=== PATIENT | male | born 1960 | race Caucasian/White ===

== ENCOUNTER 2016-11-11 14:02 | Emergency (ER) | payer OTHER ==
[~2016-11-11] VITALS: Ht 182.9 cm; Wt 92.5 kg
--- NOTE | 2016-11-11 14:20 | NUR ---
PATIENT PRESENTS TO ER C/O CHEST PAIN, 2/10 AT THE MOMENT. STATING 9/10 PAIN 2 DAYS AGO. CURRENTLY BREATHING EVEN AND UNLABORED. NO SOB, NO DIAPHORESIS. DENIES RADIATING PAIN. VITALS STABLE. SAFETY AND COMFORT MEASURES IN PLACE. AWAITING MD ORDERS.
--- NOTE | 2016-11-11 14:25 | NUR ---
NEW IV STARTED ON RAC, 18 G. BLOOD DRAWN AND SENT TO LAB.
[2016-11-11] MEDS ORDERED: ASPIRIN 325 MG TABLET PO ONE (14:30)
[2016-11-11] MEDS ORDERED: ASPIRIN 325 MG TABLET ONE (14:32)
[2016-11-11 14:45] LABS: BASOPHILS # (AUTO) 0.1 /CMM (0.0-0.2); BASOPHILS % (AUTO) 0.8 % (0.0-2.0); EOSINOPHILS # (AUTO) 0.2 /CMM (0.0-0.7); EOSINOPHILS % (AUTO) 1.9 % (0.0-6.0); HEMATOCRIT 48 % (39-51); HEMOGLOBIN 16.8 g/dL (13.5-17.5); LYMPHOCYTES # (AUTO) 2.6 /CMM (0.8-4.8); MEAN CORPUSCULAR HEMOGLOBIN 30 PG (26.0-33.0); MEAN CORPUSCULAR HGB CONC 35 g/dl (31.0-36.0); MEAN CORPUSCULAR VOLUME 86 fL (80-96); MONOCYTES # (AUTO) 0.7 /CMM (0.1-1.30); MONOCYTES % (AUTO) 9.2 % (2.0-12.0); NEUTROPHILS # (AUTO) 4.3 /CMM (1.8-8.9); NEUTROPHILS % (AUTO) 55.1 % (43.0-81.0); PLATELET COUNT (AUTO) 250 /CMM (150-450); RDW COEFFICIENT OF VARIATION 12.4 (11.5-15.0); RED BLOOD CELL COUNT(AUTO) 5.65 MIL/uL (4.5-6.0); WHITE BLOOD COUNT (AUTO) 7.9 K/uL (4.3-11.0)
[2016-11-11 14:53] LABS: CALCIUM, SERUM 8.6 mg/dL (8.5-10.1); CARBON DIOXIDE 28 mmol/L (21-32); CHLORIDE 106 mmol/L (98-107); CREATININE 1.3 mg/dL (0.6-1.3); GLUCOSE 96 mg/dL (74-106); SODIUM SERUM 140 mmol/L (136-145); UREA NITROGEN, BLOOD 21 mg/dL (7-18)
[2016-11-11 15:02] LABS: TROPONIN I < 0.017 ng/mL (0.00-0.056)
[2016-11-11 15:35] VITALS: BP 149/83
--- NOTE | 2016-11-11 15:40 | NUR ---
DR WEISS AT BEDSIDE EXPLAINING RESULTS AND FINDINGS
--- NOTE | 2016-11-11 15:46 | NUR ---
IV removed. Catheter intact and site benign. Pressure and 4x4 applied to site. No bleeding noted.Patient discharged to home in stable condition. Written and verbal after care instructions given. Patient verbalizes understanding of instruction.
== END 2016-11-11 15:49 | disposition home or self-care (01) ==
LOC: ER 14:08
DX: R07.89 Other chest pain (principal)
CPT/HCPCS: 36415; 71010; 80048; 84484; 85025; 85378; 93005; 99285; A4606; Z7610